=== PATIENT | male | born 1980 ===

== ENCOUNTER 2025-03-16 06:13 | Day surgery (SDC) | payer OTHER ==
[2025-03-08 14:04] VITALS: BP 114/80
[~2025-03-16] VITALS: Ht 172.7 cm; Wt 59.4 kg
[~2025-03-16 06:13] MED LIST: BIKTARVY 50-201 EACH
[2025-03-16] MEDS ORDERED: METRONIDAZOLE/SODIUM CHLORIDE 500 MG/100 ML PIGGYBACK IV ONE (07:30)
[2025-03-16] MEDS ORDERED: CEFTRIAXONE SODIUM 2,000 MG VIAL ONE (07:30)
[2025-03-16] MEDS ORDERED: DIBUCAINE 30 GM TUBE ONE (07:35)
[2025-03-16] MEDS ORDERED: LIDOCAINE HCL 1%/EPINEPHRINE 20ML VIAL IJ ONE (07:35)
[2025-03-16] MEDS ORDERED: HEMOSTATIC MATRIX 1 KIT KIT TOP ONE (07:35)
[2025-03-16] MEDS ORDERED: BUPIVACAINE HCL/MPF 0.5% 30ML VIAL ONE (07:35)
[2025-03-16] MEDS ORDERED: POVIDONE-IODINE 118 ML BOTT TOP ONE (07:36)
[2025-03-16] MEDS ORDERED: CELECOXIB200 MG PO (08:53)
[2025-03-16] MEDS ORDERED: NEURONTIN300 MG PO (08:54)
[2025-03-16] MEDS ORDERED: PERCOCET 5-3251 EACH PO (08:54)
== END 2025-03-16 13:10 | disposition home or self-care (01) ==
LOC: CIR.AMB 06:13
PROVIDERS: ATTEND Surgery
DX: K62.82 Dysplasia of anus (principal); Z91.013 Allergy to seafood; R85.81 Anal high risk human papillomavirus (HPV) DNA test positive